=== PATIENT | female | born 1965 | race Caucasian/White ===

== ENCOUNTER 2016-09-29 12:11 | Emergency (ER) | payer OTHER ==
[~2016-09-29] VITALS: Ht 180.3 cm; Wt 71.9 kg
[2016-09-29 13:48] LABS: ADD MIUA? YES; BILIRUBIN NEGATIVE; BLOOD SMALL; COLOR YELLOW ((YELLOW)); GLUCOSE (STRIP) NEGATIVE; KETONES NEGATIVE; LEUKOCYTES NEGATIVE; NITRITE NEGATIVE; PROTEIN (STRIP) NEGATIVE; SPECIFIC GRAVITY 1.013 (1.000-1.030); UROBILINOGEN 0.2 MG/DL (0.2-1.0)
[2016-09-29 13:50] LABS: MCH 28.1 PG (29.0-34.0); MCHC 33.2 G/DL (30.0-36.0); MCV 84.5 FL (83-99); MEAN PLAT.VOLUME 9.3 uM^3 (9.5-12.4); PLATELET COUNT 235 K/uL (156-360); RBC DIS.WIDTH-CV 12.5 % (11.8-14.6); RBC DIS.WIDTH-SD 38.5 % (39-53); RED BLOOD COUNT 4.38 M/uL (3.80-5.20); WHITE BLOOD COUNT 4.9 K/uL (4.1-10.2)
[2016-09-29 13:55] LABS: BACTERIA NONE SEEN /HPF; EPITHELIAL CELLS RARE /HPF; MUCUS TRACE /LPF; RED BLOOD CELLS 0-5 /HPF (0-5); WHITE BLOOD CELLS 0-5 /HPF (0-5)
[2016-09-29 14:00] LABS: CHLORIDE 108 mEq/L (99-109); POTASSIUM 3.6 mEq/L (3.7-5.4); SODIUM 141 mEq/L (136-147)
[2016-09-29 14:02] LABS: GLUCOSE 95 mg/dL (70-99)
[2016-09-29 14:03] LABS: ANION GAP 9 MEQ/L (2-14)
[2016-09-29 14:04] LABS: TOTAL BILIRUBIN 0.4 mg/dL (0.0-1.0)
[2016-09-29 14:06] LABS: ALKALINE PHOSPHATASE 106 IU/L (3-129); GFR ESTIMATE (CALCULATED) > 59 mL/min/
[2016-09-29 14:07] LABS: UREA NITROGEN (BUN) 10 mg/dL (9-23)
[2016-09-29 14:09] LABS: LIPASE 14 U/L (1.0-51.0)
[2016-09-29 14:58] LABS: INFLUENZA A VIRAL ANTIGEN NEGATIVE; INFLUENZA B VIRAL ANTIGEN NEGATIVE
[2016-09-29] MEDS ORDERED: NAPROSYN500 MG PO (15:16)
[2016-09-29 15:32] VITALS: BP 126/67
== END 2016-09-29 15:32 | disposition home or self-care (01) ==
LOC: EME 12:11
PROVIDERS: Nurse Practitioner Family
DX: R51 Headache (principal); R79.89 Other specified abnormal findings of blood chemistry; M79.1 Myalgia
CPT/HCPCS: 70450; 71020; 80053; 81003; 83690; 85027; 87502; 99281; 99285; J1200; J1885; J2765; J7030

== ENCOUNTER → 2016-10-15 | Outpatient (CLI) | payer OTHER ==
[~2016-10-15] MED LIST: NAPROSYN500 MG PO
== END | disposition home or self-care (01) ==
LOC: RAD 11:18
DX: D17.9 Benign lipomatous neoplasm, unspecified (principal); M19.90 Unspecified osteoarthritis, unspecified site
CPT/HCPCS: 74177